=== PATIENT | female | born 1995 | race Caucasian/White ===

== ENCOUNTER → 2016-04-13 | Outpatient (CLI) | payer OTHER | END | disposition home or self-care (01) | LOC: C.PAPS 09:29 | PROVIDERS: ATTEND Obstetrics & Gynecology | DX: Z01.419 Encounter for gynecological examination (general) (routine) without abnormal findings (principal) ==

== ENCOUNTER → 2016-05-12 | Outpatient (CLI) | payer OTHER ==
[2016-05-16 00:53] LABS: MUMPS IgG VALUE 1.43; VARICELLA ZOS VIR IGG VALUE 1.65 INDEX
== END | disposition home or self-care (01) ==
LOC: C.LABBFT 13:12
PROVIDERS: ATTEND Nurse Practitioner
DX: Z00.00 Encounter for general adult medical examination without abnormal findings (principal)

== ENCOUNTER → 2016-05-18 | Outpatient (CLI) | payer OTHER ==
[2016-05-18 17:35] LABS: PREG INTERNAL NEGATIVE QC NEG CLEAR BACKGROUND; PREG INTERNAL POSITIVE QC POS CONTROL LINE
== END | disposition home or self-care (01) ==
LOC: C.LABBFT 15:08
PROVIDERS: ATTEND Nurse Practitioner
DX: Z30.9 Encounter for contraceptive management, unspecified (principal)

== ENCOUNTER 2020-10-07 07:49 | Inpatient (IN) ==
[2020-10-07] MEDS ORDERED: LACTATED RINGER'S 1,000 ML IV PRN (08:02)
[2020-10-07] MEDS ORDERED: OXYTOCIN 30 UNITS/500 ML BAG IV PRN ×3 (08:02→11:24)
[2020-10-07 08:29] LABS: Hematocrit (blood only) 33.4 % (37-47); Hemoglobin 11.3 g/dL (12.0-16.0); Mean Corpuscular Hemoglobin 29.3 pg (25-34); Mean Corpuscular Hgb Conc 33.8 g/dL (32-36); Mean Corpuscular Volume 86.5 fL (80-100); Mean Platelet Volume 10.4 fL (7.4-10.4); Platelet Count 214 K/uL (130-400); RDW Coefficient of Variation 13.2 % (11.5-14.5); RDW Standard Deviation 41.4 fL (36.4-46.3); Red Blood Count 3.86 M/uL (4.2-5.4); White Blood Count 8.69 K/uL (4.8-10.8)
[2020-10-07] MEDS ORDERED: CALCIUM CARBONATE 500 MG CHEWABLE TAB PO PRN (09:21)
--- NOTE | 2020-10-07 10:02 | History & Physical Report ---
Date of Service October 07, 2020 Assessment & Plan (1) Encounter for supervision of normal in multigravida: Plan: -admit to l&d -NPO except for ice chips -IV LR, epidural -AROM, pitocin -FHTs -Labs -Rh+ -RI -GBS negative (2) : Admission and Anticipated Discharge Date Admission Date: October 07, 2020 History of Present Illness Chief Complaint: IOL Primary Care Provider: VICTORIANO Hassan 25 y/o female currently at 39.2 WGA with an ARNULFO 10/12/20 as confirmed by ultrasound) who is here for IOL. + contractions; + movement; - fluid loss; + bloody show (spotting) Had regular appointments with OB. Labs: (today) Blood type: O+ Antibody screen: negative H.3 Hct: 33.4 WBC: 8.69 Plt: 214 Rubella: immune VDRL/RPR: nonreactive Gonorrhea: negative Chlamydia: negative HIV: negative HbSAg: negative GBS: negative Other screens: cff-DNA: declined CF: declined SMA: declined Allergies Allergy/AdvReac Type Severity Reaction Status Date / Time iodine Allergy Unknown Hives,swelling Verified 10/06/20 12:00 and peeling skin. Home Medications Medication Instructions Recorded Confirmed Type No Known Home Medications 09/23/20 10/06/20 History Patient History Medical History History of dyspareunia History of ovarian cyst History of depression Premature rupture of membranes (PROM) at term with onset of labor after 24 hours , antepartum Varicella vaccination Surgical History S/P tonsillectomy and adenoidectomy S/P wisdom tooth extraction Family History Aunt Depression Mother Diabetes Grandmother Diabetes Ovarian cancer Grandmother (Paternal) Uterine cancer Denies family history of Pancreatic cancer Prostate cancer Myocardial infarction Breast cancer Colorectal cancer Social History Smoking Status: Never smoker Second Hand Exposure: No; Hx Alcohol Use: No Hx Substance Use: No Preferred Language: Greenlandic Communication Ability: Effective Visual Impairment: No Limitations Hearing Ability: Normal Hides Soaker Required: No Beliefs That Will Affect Care: None marital status: Single marital status details: Gee Portillo (35) [phone] Current Living Situation: Significant Other Current Living Situation Comment: Step-daughter and daughter current occupational status: employed 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 No acute distress. Cardiac: Regular rate and rhythm, no murmurs/rubs/gallops. Respiratory: Clear to auscultation bilaterally a/p, no wheezes/rales/rhonchi. No increased work of breathing. Symmetrical chest rise. No respiratory distress. Pelvic: Dilation 5 cm; Effacement 90%; Station -[address] Vega Lower Extremities: No lower extremity edema or swelling. No deep calf pain. Lubna's negative bilaterally Baseline:135 bpm Variability:minimal Accelerations: present Decelerations: none Constitutional: WD/WN, vitals as above Respiratory: normal respiratory effort, lungs clear to auscultation Cardiovascular: RRR, no murmur, no edema Gastrointestinal (Abdomen): normal bowel sounds, soft, nontender, no hepatosplenomegaly Musculoskeletal: no cyanosis or clubbing, extremities motor strength 5/5 Genitourinary: Manual OB Exam: + cervical dilation 5 cm, + cervical effacement 90% and + station -2 OB Exam Monitor Tracing: + external FHT monitor used, + category I and + normal FHT variability Results & Data ([facility]) Vital Signs (Past 12 Hours) Vital Signs Temp Pulse Resp BP 10/07/20 09:50 90 18 123/69 10/07/20 08:02 36.5 C 110 H 18 126/76 10/07/20 08:00 110 H 126/76
[2020-10-07] MEDS ORDERED: ePHEDrine sulfate 50 MG/ML AMP ONE (10:04)
[2020-10-07] MEDS ORDERED: SODIUM CHLORIDE 0.9% INJ 10 ML VIAL ONE (10:04)
[2020-10-07] MEDS ORDERED: fentaNYL citrate 100 MCG/2 ML VIAL ONE (10:04)
[2020-10-07] MEDS ORDERED: BUPIVACAINE 0.25% 30 ML VIAL ONE (10:04)
[2020-10-07] MEDS ORDERED: fentaNYL 2MCG/ML ROPIVACAINE 1.25MG/ML 100 ML BAG EPI ONE (10:05)
--- NOTE | 2020-10-07 10:35 | Anesthesiology Consultation ---
Date of Service October 07, 2020 Assessment & Plan (1) Encounter for pre-operative examination: Chart Review Chart Review: Patient NOT seen in Pre Admission Testing and Acceptable Risk for Labor Epidural Consults Requested none History Height/Weight Height: 5 ft 1 in Weight: 83.461 kg Allergies Allergy/AdvReac Type Severity Reaction Status Date / Time iodine Allergy Unknown Hives,swelling Verified 10/06/20 12:00 and peeling skin. Medications Home Medications Medication Instructions Recorded Confirmed Last Taken No Known Home Medications 09/23/20 10/06/20 Unknown Active Medications Generic Name Dose Route Start Last Admin Trade Name Freq PRN Reason Stop Dose Admin Oxytocin 30 units in 500 mls @ 3 mls/hr 10/07/20 08:02 10/07/20 09:47 Pitocin IV 10/09/20 08:01 0.18 units/hr .Q24H PRN 3 mls/hr Labor Induction/Augmentation Titration Protocol 0.18 UNITS/HR Lactated Ringer's 1,000 mls @ 125 mls/hr 10/07/20 08:02 10/07/20 10:01 Lr IV 10/09/20 08:01 999 mls/hr .Q8H PRN Infusion L&D Protocol Protocol NPO Date Last Intake of Fluids: 10/07/20 Time Last Intake of Fluids: 10:34 Date Last Intake of Solids: 10/07/20 Time Last Intake of Solids: 07:00 Past Medical History Medical History History of dyspareunia History of ovarian cyst History of depression Premature rupture of membranes (PROM) at term with onset of labor after 24 hours, antepartum Varicella vaccination Exercise / Class Metabolic Activity II 4-5 Yardwork/Stairs/Walk up hill Past Family History Family History Aunt Depression Mother Diabetes Grandmother Diabetes Ovarian cancer Grandmother (Paternal) Uterine cancer Denies family history of Pancreatic cancer Prostate cancer Myocardial infarction Breast cancer Colorectal cancer Past Surgical History Surgical History S/P tonsillectomy and adenoidectomy S/P wisdom tooth extraction Past Anesthesia History No Hx of Anesthesia Complications History of PONV No Hx of PONV Social History Smoking Status: Never smoker Hx Alcohol Use: No Hx Substance Use: No Review of Systems Negative for chest pain or shortness of breath. Patient denies active symptoms of GERD. Patient denies history of abnormal bleeding or bleeding disorder. Patient denies active use of anticoagulants other than low dose aspirin. Patient denies numbness, tingling or weakness in lower extremities. Physical Exam Vital Signs Last Vital Signs Temp 36.5 C 10/07/20 08:02 Pulse 82 10/07/20 10:32 Resp 18 10/07/20 09:50 BP 124/70 10/07/20 10:32 Pulse Ox 95 10/07/20 10:30 Testing Laboratory Results 10/07/20 08:17
[2020-10-07] MEDS ORDERED: oxyCODONE/ACETAMINOPHEN 5mg/325mg TAB PO PRN (11:24)
[2020-10-07] MEDS ORDERED: ACETAMINOPHEN 325 MG TAB PO PRN (11:24)
[2020-10-07] MEDS ORDERED: BENZOCAINE 20% AER SPR 82.5 GM CAN EXT PRN (11:24)
[2020-10-07] MEDS ORDERED: HYDROCORTISONE ACETATE 25 MG SUPP PR PRN (11:24)
[2020-10-07] MEDS ORDERED: bisacodyL 10 MG SUPP PR PRN (11:24)
[2020-10-07] MEDS ORDERED: DIPHTHERIA/TETANUS/PERTUSSIS 0.5 ML SYR/VIAL IM ONE (11:24)
[2020-10-07] MEDS ORDERED: SUPERCREAM 0.870% 15 GM JAR EXT PRN (11:24)
[2020-10-07] MEDS ORDERED: ACETAMINOPHEN 325 MG TAB ONE (11:25)
--- NOTE | 2020-10-07 11:59 | Delivery Summary ---
Vaginal Delivery Summary Date of Service October 07, 2020 Vaginal Delivery Summary DIAGNOSES: 1. Aburto intrauterine at 39w2d gestation. 2. Induction of labor due to advanced cervical dilation. 3. Group B Streptococcus Neg. PROCEDURE: Spontaneous vaginal delivery without laceration. SURGEON: Iveth Vega MD. COMPTROLLER: MICHI ESTIMATED BLOOD LOSS: 300 mL. COMPLICATIONS: None. PLACENTA: Spontaneous and intact with a 3-vessel cord. DISPOSITION: Stable to labor and delivery. DESCRIPTION: The patient pushed well and brought the head to in DOA position. The infant's head was allowed to deliver with contraction force and no further active pushing, with the perineum protected during this time. There was no nuchal cord. The right shoulder was anterior. The shoulders and body delivered without any difficulty, and the infant was placed on the maternal abdomen. It was vigorous and moving all extremities, and making respiratory efforts. The cord was doubly clamped by the MD and then cut by the FOB. The placenta delivered spontaneously and was noted to be intact and with a 3VC. The cervix, vagina and perineum were examined and were found to be without defect requiring repair. The fundus was firm and lochia minimal immediately after delivery. [facility] Vaginal Delivery Charge Vaginal Delivery Codes: 78416 global code for the antepartum, delivery, and post- Delivery Type Details:
[2020-10-07] MEDS: IBUPROFEN 600 MG TAB PO PRN ×2 (13:40→19:54)
[2020-10-07] MEDS: DOCUSATE SODIUM 100 MG CAP PO SCH (21:00)
[2020-10-08] MEDS: IBUPROFEN 600 MG TAB PO PRN ×3 (00:21→11:48)
--- NOTE | 2020-10-08 06:11 | Obstetrical Progress Note ---
Date of Service October 08, 2020 Assessment & Plan (1) : (2) Encounter for care and examination after delivery: Stable Routine care -encourage ambulation -tolerating regular diet -pain well managed on analgesics - -Rh+, RI, GBS- -d/c in AM if mother is amenable Subjective 25 y/o female who is now PPD #1 following spontaneous vaginal delivery at 39.2 weeks. Reports feeling well overall this morning. Reports abdominal cramping with feeding & 2/10 pain well managed on analgesics. Voiding +. Tolerating meals well and is ambulating without restrictions. Is passing gas but denies having a bowel movement. Minimal lochia with some improvement this morning. . Review of Systems Denies fever, chills, sweats Denies shortness of breath, difficulty breathing, chest pain, palpitations, chest pressure. Denies breast pain. Denies dysuria. Denies headache or changes in vision Review of Systems All systems reviewed & are unremarkable except as noted in HPI & below Physical Exam Constitutional WD/WN, vitals as above Respiratory normal respiratory effort, lungs clear to auscultation Cardiovascular RRR, no murmur, no edema Gastrointestinal (Abdomen) normal bowel sounds, soft, nontender, no hepatosplenomegaly Musculoskeletal no cyanosis or clubbing, extremities motor strength 5/5 Results & Data ([facility]) Vital Signs (Past 12 Hours) Vital Signs Temp Pulse Resp BP Pulse Ox 10/08/20 03:45 36.7 C 89 18 135/81 98 10/07/20 23:55 36.7 C 80 18 105/71 98 10/07/20 19:50 36.7 C 76 18 109/68 98 Resident Activity Tracking Resident Involvement: Resident Care Provided Care Provided: OB Delivery
[2020-10-08] MEDS: DOCUSATE SODIUM 100 MG CAP PO SCH (07:39)
[2020-10-08] MEDS ORDERED: PRENATAL VITAMIN 1 TAB PO SCH (08:00)
[2020-10-08 08:02] LABS: Hematocrit (blood only) 33.4 % (37-47); Hemoglobin 10.9 g/dL (12.0-16.0); Mean Corpuscular Hemoglobin 28.9 pg (25-34); Mean Corpuscular Hgb Conc 32.6 g/dL (32-36); Mean Corpuscular Volume 88.6 fL (80-100); Mean Platelet Volume 10.6 fL (7.4-10.4); Platelet Count 225 K/uL (130-400); RDW Coefficient of Variation 13.2 % (11.5-14.5); RDW Standard Deviation 42.7 fL (36.4-46.3); Red Blood Count 3.77 M/uL (4.2-5.4); White Blood Count 11.89 K/uL (4.8-10.8)
[2020-10-08] MEDS ORDERED: bisacodyL 5 MG TABEC PO SCH (20:00)
== END 2020-10-08 13:00 | disposition home or self-care (01) | DRG 807 ==
LOC: 4S1 07:49 → 4S2 14:05